=== PATIENT | female | born 1960 | race Caucasian/White ===

== ENCOUNTER 2022-04-25 10:24 | Emergency (ER) | payer BC ==
[~2022-04-25] VITALS: Ht 165.1 cm; Wt 82.0 kg
[2022-04-25 10:36] VITALS: BP 120/69
[2022-04-25] MEDS ORDERED: oxyCODONE/APAP 5-325mg tablet PO ONE (13:20)
[2022-04-25] MEDS ORDERED: HYDR-3965 PO (15:24)
== END 2022-04-25 15:34 | disposition home or self-care (01) ==
LOC: ER 10:26
DX: M54.6 Pain in thoracic spine (principal); Z85.9 Personal history of malignant neoplasm, unspecified
CPT/HCPCS: 70450; 72128; 72131; 99284